=== PATIENT | male | born 1960 | race Caucasian/White ===

== ENCOUNTER 2016-06-30 07:11 | Emergency (ER) | payer OTHER, MEDICARE ==
[~2016-06-30 07:11] MED LIST: A-SPAS-S/L0.125 MG SL; ABACAVIR300 M1 PO; ACCUNEB0.42 MG/ML IH; ADVAIR 5001 DISK W/D IH; ADVAIR 50028 BLISTER INH; ALBUTEROL I0.5 ML/EA AERO NEB; ALBUTEROL INH 0.3 ML AERO NEB; ALBUTEROL0.83 MG/ML INH; ALBUTEROL2.5 MG/0.5 IH; AMARYL1 MG PO; AMARYL2 MG PO; AMARYL4 M1 PO; AMARYL4 MG PO; AMITIZA24 MC1 PO; AMLODIPINE BES2.5 MG PO; ANDROGEL5 GM TD; ANTIBIOTIC; ANTIVERT25 MG PO; ARICEPT10 M1 PO; ARICEPT10 MG; ARICEPT10 MG PO; ARICEPT5 MG; ASMANEX; ASMANEX0; ASMANEX0.24 G1 IH; ASPIR-LOW81 MG PO; ASPIRIN EC325 MG PO; ASPIRIN EC81 M1 PO; ASTELIN137 MCG; AUGMENTIN 875-1 EAC1 PO; AUGMENTIN 875-11 TAB PO; AUGMENTIN875 MG/TA1 PO; AZITHROMYCIN250 M1 PO; AZITHROMYCIN250 MG; BACTRIM DS TABL1 TAB PO; BACTRIM DS1 TA1 PO; BACTRIM DS1 TAB PO; BACTRIM1 TAB PO; BRAIN MIGHT-DH1 EACH PO; BREO ELLIPTA 11 EAC1 IH; BREO ELLIPTA 11 EAC1 INH; BYSTOLIC2.5 MG PO; BYSTOLIC5 M1 PO; BYSTOLIC5 MG PO; CALCIUM 600 +1 EA15 PO; CALCIUM 600 +1 EAC2 PO; CALCIUM 600 +1 EAC5 PO; CALCIUM 600 MG1 EACH PO; CARBIDOPA-LE1 TAB.SA PO; CEFDINIR300 MG PO; CENTRUM SILVER1 EAC3 PO; CENTRUM SILVER1 TA PO; CITRATE OF MAG300 ML PO; CLARITIN10 M2 PO; CLARITIN10 M6 PO; CLONAZEPAM0.5 M1 PO; CLONAZEPAM0.5 M2 PO; CLONAZEPAM0.5 MG; CLONAZEPAM1 MG PO; CODEINE; COLACE-T100 MG PO; COQ-10 PO; COUGH; CYMBALTA30 MG; CYMBALTA30 MG PO; CYMBALTA60 M1 PO; CYMBALTA60 MG; CYMBALTA60 MG PO; DETROL LA; DETROL LA4 MG PO; DHA; DHA ALGAL-900300 MG PO; DIABETIC FOOT CREAM; DICLOFENAC SODI75 M2 PO; DITROPAN XL10 M3 PO; DITROPAN XL10 MG PO; DORYX100 MG PO; DOXYCYCLINE HY100 M3 PO; DOXYCYCLINE HY100 MG PO; DULCOLAX10 MG/SUPP RC; DURAGESIC TD; ENALAPRIL; ENALAPRIL MALEAT5 MG PO; EQL FISH OIL 1,1 CA1 PO; FISH OIL 1,001000 M1 PO; FISH OIL 1,4001 EACH PO; FISH OIL 500 M1 EAC4 PO; FLEET ENEMA118 ML RC; FLEXERIL10 MG PO; FLEXERIL5 MG PO; FLUTICASONE PRO16 GM; GABAPENTIN100 MG PO; GABAPENTIN300 MG PO; GEODON40 MG; GEODON40 MG PO; GEODON60 M1 PO; GEODON60 MG PO; GEODON80 MG PO; GLIMEPIRIDE1 MG PO; GLUCOPHAGE XR500 M1 PO; GLUCOPHAGE1000 MG; GLUCOPHAGE1000 MG PO; GLUCOPHAGE500 MG; GLUCOPHAGE500 MG/TA2 PO; GOLYTELY S4000 ML/EA PO; GUAIFENESIN; HYDROCODON-ACE1 EAC7 PO; HYDROCODON-ACE1 EAC8 PO; HYDROCORT OT; HYDROCORTISON28.4 G9 TP; HYTRIN2 MG PO; IBUPROFEN400 MG PO; INDERAL10 MG PO; ISOSORBIDE DINI10 M1 PO; ISOSORBIDE MONO10 M1 PO; KEFLEX500 MG PO; KETOCONAZOLE; KETOCONAZOLE TOP; KETOCONAZOLE120 ML; KETOCONAZOLE120 ML TP; KLONOPIN0.5 MG; LEVEMIR100 UNITS/ SC; LINZESS; LIVALO2 M1 PO; LORATADINE PO; LORAZEPAM; LORAZEPAM0.5 MG; MACROBID 100 M100 MG PO; MECLIZINE; METAGLIP; METAMUCIL425 G1 PO; METFORMIN; METFORMIN HCL500 MG; METHYLPRED4 MG/DOSE- PO; MILK OF MA400 MG/5 M PO; MILK OF MAGNESIA; MIRALAX17 G1 PO; MIRALAX17 G2 PO; MIRAPEX0.25 M1 PO; MIRAPEX1 M1 PO; MOBIC PO; MOTRIN600 MG PO; MUCINEX1200 MG/BO; MUCINEX600 M1 PO; MUCINEX600 MG; MUCINEX600 MG PO; MULTIVITAMIN1 TAB PO; NAPROSYN500 MG PO; NASONEX17 GM NS; NATURAL ZINC50 MG PO; NEFAZODONE HCL150 MG; NEURONTIN100 MG PO; NEURONTIN300 M1 PO; NEURONTIN300 MG PO; NORCO 5/325 TAB1 TAB; NORCO 5/325 TAB1 TAB PO; NORCO 7.5/325 T1 TAB PO; NORVASC2.5 M1 PO; NORVASC5 M1 PO; NOVOLIN R100 UNIT/1; OMEGA 3 FISH1 CAP.EC PO; OXYBUTYNIN PO; OXYCODONE/APAP PO; OXYCONTIN10 M1 PO; OXYGEN; PARKINSON'S MED; PERCOCET 5/3251 TAB PO; PERCOCET 5MG/AP1 TA2 PO; PHENERGAN VC W120 ML PO; POTASSIUM595 ( 99 ) PO; PREDNISONE10 M1 PO; PREDNISONE20 MG PO; PRENATAL 19 CH1 EAC1 PO; PRENATAL1 EACH PO; PROMETHAZINE-C120 ML PO; PROTONIX; PROTONIX20 M1 PO; PROTONIX40 M2 PO; PROTONIX40 MG PO; PROVENTIL HFA6.7 GM IH; PYRIDIUM100 M1 PO; REMERON15 MG; ROXICODONE5 MG PO; SALINE NASAL SP30 ML; SENNA PLUS TAB1 EAC1 PO; SENOKOT-S (SENN1 TA1 PO; SIMVASTATIN20 MG PO; SINEMET 25-1001 TA1 PO; SINEMET CR 50-1 EACH PO; SINEMET ER 50/21 TA1 PO; SPIRIVA18 MC1 IH; SPIRIVA18 MCG IH; SPIRIVA18 MCG NS; SYMBICORT 160-4.6 GM IH; TERAZOSIN HCL2 M PO; TOVIAZ4 MG PO; TRAMADOL; TRAMADOL HCL50 M2 PO; TRAZODONE50 MG; TRIMETHOPR100 MG/TAB PO; TUSSIONEX PENN473 ML PO; TYLENOL325 M2 PO; TYLENOL325 MG PO; TYLENOL650 MG PO; ULTRAM50 MG PO; UROXATRAL10 MG PO; VENTOLIN HFA18 G1 IH; VIBRAMYCIN100 MG PO; VICTOZA 2-0.6 MG/0.1 SC; VITAMIN B-12250 MC2 PO; VITAMIN B12 PO; VITAMIN B12500 MCG PO; VITAMIN D1000 UNI1 PO; VITAMIN D1000 UNIT PO; XARELTO10 MG PO; ZINC50 M2 PO; ZOCOR20 MG PO; ZOCOR40 MG; ZOCOR40 MG PO; ZOFRAN ODT8 MG/TAB PO; ZOFRAN4 M2 PO; [UNRECOGNIZED DRUG - OTHER]; [UNRECOGNIZED DRUG - OTHER] OT; [UNRECOGNIZED DRUG - OTHER] PO; [UNRECOGNIZED DRUG - OTHER] PO; [UNRECOGNIZED DRUG - OTHER] PO; [UNRECOGNIZED DRUG - OTHER] PO; [UNRECOGNIZED DRUG - OTHER] PO; [UNRECOGNIZED DRUG - OTHER] TD; [UNRECOGNIZED DRUG - REMARK]
[2016-06-30 08:07] LABS: BASO % 0.3 % (0-2); EOS % 4.3 % (0-7); EOSINOPHIL ABSOLUTE COUNT 0.3 tho/cmm (0.0-0.7); HCT-HEMATOCRIT 43.5 % (36.0-53.5); HGB-HEMOGLOBIN 14.8 gm/dl (13.5-17.0); IMMATURE GRANULOCYTES ABSOLUTE 0.02 tho/cmm (0-0.03); IMMATURE GRANULOCYTES PERCENT 0.3 % (0-0.3); LYMPH % 23.5 % (20-45); LYMPH ABSOLUTE COUNT 1.5 tho/cmm (0.8-4.5); MCH (MEAN CORPUSCULAR HGB) 30.6 pg (28.0-32.0); MCV (MEAN CELL VOLUME) 90.1 fl (82.0-96.0); MEAN PLATELET VOLUME 9.5 cmc (9.4-12.4); MONO % 10.1 % (0-12); MONOCYTE ABSOLUTE COUNT 0.6 tho/cmm (0.0-1.2); NEUTROPHIL ABSOLUTE COUNT 3.8 tho/cmm (1.6-8.0); NEUTROPHIL-AUTOMATED 3.8 tho/cmm (1.6-8.0); NEUTROPHILS % 61.5 % (40-80); PLATELET COUNT 196 tho/cmm (150-450); RED BLOOD COUNT 4.83 mil/cmm (4.40-5.70); RED CELL DISTRIBUTION WIDTH 13.5 % (12.4-16.4); WHITE BLOOD COUNT 6.2 tho/cmm (4.0-10.0)
[2016-06-30 08:30] LABS: ALB/GLOB RATIO 0.8 (0.8-2.0); ALBUMIN 3.1 g/dl (3.5-5.0); ALKALINE PHOSPHATASE 102 U/L (33-138); ANION GAP 12 mmol/L (0-20); AST/SGOT 20 U/L (10-40); BILIRUBIN,TOTAL 0.5 mg/dl (0.0-1.5); BLOOD UREA NITROGEN 9 mg/dl (6-24); CALCIUM 8.7 mg/dl (8.5-10.5); CARBON DIOXIDE-VENOUS 25 mmol/L (22-32); CHLORIDE 107 mmol/l (96-110); CREATININE 1.02 mg/dl (0.60-1.30); GLUCOSE 213 mg/dL (70-110); POTASSIUM 3.6 mmol/L (3.7-5.1); SODIUM 140 mmol/L (135-145); eGFR VALUE FOR BLACK >90 mL/Min
[2016-06-30 08:31] LABS: ALT/SGPT <10 U/L (12-78)
[2016-06-30 08:49] LABS: PROCALCITONIN <0.05 ng/ml (0.05-0.09)
[2016-06-30] MEDS ORDERED: KEFLEX500 M4 PO (08:49)
[2016-06-30] MEDS ORDERED: GEODON60 M1 PO (08:49)
[2016-06-30] MEDS ORDERED: MYRBETRIQ50 M1 PO (08:50)
[2016-06-30] MEDS ORDERED: NEURONTIN300 M1 PO (08:50)
[2016-06-30] MEDS ORDERED: CYMBALTA60 M1 PO (08:50)
[2016-06-30] MEDS ORDERED: LIVALO2 M1 PO (08:51)
[2016-06-30] MEDS ORDERED: SPIRIVA RESPIMAT4 G1 INH (08:52)
[2016-06-30] MEDS ORDERED: BREO ELLIPTA 11 EAC1 INH (08:52)
[2016-06-30] MEDS ORDERED: KLONOPIN0.5 M1 PO (08:53)
[2016-06-30] MEDS ORDERED: HUMALOG100 UNIT/2 SC (08:53)
[2016-06-30] MEDS ORDERED: LEVEMIR FL100 UNIT/2 SC (08:53)
[2016-06-30] MEDS ORDERED: MIRAPEX PO (08:54)
[2016-06-30] MEDS ORDERED: ISOSORBIDE DINI10 M1 PO (08:54)
[2016-06-30] MEDS ORDERED: VICTOZA 3-0.6 MG/0.2 SC (08:55)
[2016-06-30] MEDS ORDERED: BYSTOLIC5 M1 PO (08:55)
[2016-06-30] MEDS ORDERED: SPIRIVA18 MC1 INH (08:56)
[2016-06-30] MEDS ORDERED: CLARITIN10 M6 PO (08:56)
[2016-06-30] MEDS ORDERED: KRILL OIL500 M1 PO ×2 (08:57→08:58)
[2016-06-30] MEDS ORDERED: ULTRAM50 M1 PO (08:59)
[2016-06-30] MEDS ORDERED: TYLENOL325 M2 PO (08:59)
[2016-06-30] MEDS ORDERED: CARBIDOPA-LEVO1 EA11 PO (09:01)
[2016-06-30] MEDS ORDERED: CALCIUM 500 MG1 EAC1 PO (09:01)
[2016-06-30] MEDS ORDERED: MUCINEX600 M1 PO (09:02)
[2016-06-30] MEDS ORDERED: COLACE100 M1 PO (09:02)
[2016-06-30] MEDS ORDERED: ZINC50 M2 PO (09:02)
[2016-06-30] MEDS ORDERED: MOVANTIK25 MG PO (09:03)
[2016-06-30] MEDS ORDERED: SENNA PLUS TAB1 EAC1 PO (09:03)
[2016-06-30] MEDS ORDERED: CENTRUM SILVER1 EAC3 PO (09:04)
[2016-06-30] MEDS ORDERED: B-121000 MC2 PO (09:04)
[2016-06-30] MEDS ORDERED: MIRALAX17 G2 PO (09:04)
[2016-06-30] MEDS ORDERED: PROMETH-CODEIN 65 ML PO (09:18)
[2016-06-30] MEDS ORDERED: BENZONATATE200 M1 PO (09:19)
[2016-06-30] MEDS ORDERED: PROAIR HFA8.5 GM INH (09:53)
[2016-06-30] MEDS ORDERED: PROMETHAZINE-C118 ML PO (10:22)
[2016-11-11] MEDS ORDERED: ANTIFUNGAL30 G3 TP (15:00)
[2016-11-11] MEDS ORDERED: AUGMENTIN 875-1 EAC2 PO (15:35)
[2016-11-20] MEDS ORDERED: LACTINEX CHEWA1 EAC1 PO (21:13)
[2016-11-20] MEDS ORDERED: HUMALOG100 UNITS/ SC (21:16)
[2016-12-06] MEDS ORDERED: KEFLEX500 M4 PO (00:23)
[2016-12-06] MEDS ORDERED: PYRIDIUM100 M2 PO (00:23)
[2016-12-06] MEDS ORDERED: NORCO 5/3251 TAB PO (00:23)
== END 2016-06-30 10:27 ==
LOC: EDMED 07:11
PROVIDERS: Emergency Medicine
DX: J40 Bronchitis, not specified as acute or chronic (principal); J32.9 Chronic sinusitis, unspecified; J44.9 Chronic obstructive pulmonary disease, unspecified; E11.9 Type 2 diabetes mellitus without complications; I10 Essential (primary) hypertension; G47.33 Obstructive sleep apnea (adult) (pediatric); G20 Parkinson's disease; E78.5 Hyperlipidemia, unspecified; E66.9 Obesity, unspecified; Z87.442 Personal history of urinary calculi; Z98.42 Cataract extraction status, left eye; Z79.4 Long term (current) use of insulin; Z79.899 Other long term (current) drug therapy
CPT/HCPCS: J7030